=== PATIENT | male | born 1975 | race Caucasian/White ===

== ENCOUNTER 2021-01-26 14:35 | Outpatient (CLI) | payer MEDICARE | END 2021-01-26 14:36 | disposition home or self-care (01) | LOC: BICULT 14:35 | PROVIDERS: ATTEND Family Medicine | DX: N18.4 Chronic kidney disease, stage 4 (severe) (principal); N28.1 Cyst of kidney, acquired | CPT/HCPCS: 76770 ==

== ENCOUNTER 2024-01-23 04:09 | Emergency (ER) | payer MEDICARE | END 2024-01-23 05:48 | disposition home or self-care (01) | LOC: ERS 04:09 | DX: K59.00 Constipation, unspecified (principal) | CPT/HCPCS: 74022; 99283 ==

== ENCOUNTER 2024-01-25 17:58 | Emergency (ER) | payer MEDICARE ==
[~2024-01-25 17:58] MED LIST: Iopamidol-370 76% 500 ML MDV (1 ML CHARGE) ONE
[2024-01-25] MEDS ORDERED: Lorazepam 2 MG/ML VIAL ONE (21:51)
[2024-01-25 23:06] LABS: #Basophils 0.05 10x3/uL (0.0-0.2); %Basophils 0.5 % (0.0-1.0); %Eosinophils 0.7 % (0.0-10.0); %Monocytes 10.2 % (0.0-10.0); %Neutrophils 73.3 % (42.0-75.0); Hematocrit 41.8 % (42.0-52.0); Hemoglobin 14.2 g/dL (14.0-18.0); Mean Corpuscular Hemoglobin 30.3 pg (27.0-31.0); Mean Corpuscular Volume 89.3 fL (78.0-98.0); Mean Platelet Volume 12.5 fL (7.4-10.4); Platelet Count 131 10x3/uL (130-400); Red Blood Cell (RBC) Count 4.68 mill/uL (4.70-6.10)
[2024-01-25 23:30] LABS: ALT (SGPT) 60 U/L (8-55); AST (SGOT) 62 U/L (5-34); Albumin 3.5 g/dL (3.5-5.0); Alkaline Phosphatase 112 U/L (40-110); Anion Gap 16 mmol/L (10-20); BUN (Urea Nitrogen) 33 mg/dL (8.9-20.6); Bilirubin, Total 0.7 mg/dL (0.2-1.2); Calc. Creatinine Clearance 0 mL/min (70-130); Calcium 9.9 mg/dL (7.8-10.44); Carbon Dioxide 30 mmol/L (22-29); Chloride 104 mmol/L (98-107); Estimated GFR 58; Glucose 78 mg/dL (70-105); Potassium 3.6 mmol/L (3.5-5.1); Protein, Total 7.5 g/dL (6.0-8.3); Sodium 146 mmol/L (136-145)
== END 2024-01-26 01:12 | disposition home or self-care (01) ==
LOC: ERS 17:58
DX: K80.20 Calculus of gallbladder without cholecystitis without obstruction (principal); K59.00 Constipation, unspecified; N28.1 Cyst of kidney, acquired; N18.30 Chronic kidney disease, stage 3 unspecified
CPT/HCPCS: 74177; 80053; 85025; J2060; Q9967; 36415; 96372